=== PATIENT | male | born 2005 | race Caucasian/White ===

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

== ENCOUNTER 2024-03-12 17:06 | Emergency (ER) | payer OTHER ==
[2024-03-12] VITALS (12 sets, daily range): BP systolic 111–144; BP diastolic 73–99
[~2024-03-12] VITALS: Ht 132.1 cm; Wt 54.0 kg
[~2024-03-12 17:06] MED LIST changes: +AMOXICILLIN500 MG PO; +AZITHROMYCIN500 MG PO; +DOXYCYC MONO100 M3 PO; +FOCALIN XR20 MG PO; +NAPROSYN250 MG PO; +NEOSPORIN PLUS28 GM EX
[2024-03-12] MEDS ORDERED: KETOROLAC TROMETHAMINE 30 MG/ML SDV IV ONE (17:35)
[2024-03-12] MEDS ORDERED: SODIUM CHLORIDE 0.9% 1,000 ML IV ONE (17:35)
[2024-03-12 17:59] LABS: URINE BILIRUBIN - DIPSTICK Negative (NEGATIVE); URINE BLOOD DIPSTICK Negative (NEGATIVE); URINE COLOR Yellow; URINE GLUCOSE - DIPSTICK Negative (NEGATIVE); URINE KETONE Negative (NEGATIVE); URINE LEUK ESTERASE Negative (NEGATIVE); URINE NITRITE - DIPSTICK Negative (Negative); URINE PROTEIN - DIPSTICK Negative (NEG-TRACE); URINE UROBILINOGEN - DIPSTICK 0.2 E.U./dL (0.2)
[2024-03-12 18:00] LABS: BASO% 0.2 % (0-3); EOS% 5.3 % (0-8); HEMATOCRIT 40.9 % (39.0-50.0); HEMOGLOBIN 14.2 g/dl (14.0-18.0); IMMATURE GRANULOCYTES 0.2 % (0.0-5.0); LYMPH% 13.5 % (15-41); MEAN CORPUSCULAR HGB 33.4 pG CALC (26.0-32.0); MEAN CORPUSCULAR HGB CONC 34.7 g/dL CAL (32.0-36.0); NEUT# 8.26 thou/uL (1.82-7.42); NEUT% 74.8 % (42-76); RED BLOOD COUNT 4.25 mill/uL (4.70-6.10); RED CELL DISTRI WIDTH 11.6 % (11.5-15.5)
[2024-03-12 18:01] LABS: MEAN CELL VOLUME 96.2 fL CALC (80.0-100.0)
[2024-03-12 18:16] LABS: ALBUMIN 4.5 g/dL (3.2-5.0); BILIRUBIN, TOTAL 0.4 mg/dL (0.2-1.3); CREATININE 0.9 mg/dL (0.7-1.3); TOTAL PROTEIN 7.6 g/dL (6.3-8.2)
[2024-03-12 18:27] LABS: POTASSIUM 3.9 mmol/l (3.5-5.1)
[2024-03-12] MEDS ORDERED: Pantoprazole Sodium 40 MG VIAL (Protonix) IV ONE (20:10)
[2024-03-12] MEDS ORDERED: PROTONIX40 M2 PO (20:11)
== END 2024-03-12 20:36 | disposition home or self-care (01) | DRG 392 ==
LOC: ED 17:06
PROVIDERS: Nurse Practitioner
DX: R10.84 Generalized abdominal pain (principal)
CPT/HCPCS: J2470; Q9967